=== PATIENT | male | born 1965 | race Caucasian/White ===

== ENCOUNTER 2020-06-15 15:01 | Inpatient (IN) ==
[2020-06-15] MEDS ORDERED: NS 0.9% 1000 ml BAG 1,000 ML IV ONE ×2 (15:45→18:09)
[2020-06-15 15:58] LABS: ABS Lymphocytes 0.8 10^3/ul (1.0-4.8); ABS Monocytes 0.7 10^3/ul (0-0.8); ABS Neutrophils 3.7 10^3/ul (1.5-7.7); Hematocrit 38 % (42-52); Lymphocyte % 15.4 %; Mean Corpuscular HGB Conc 35 g/dL (31-36); Mean Corpuscular Hemoglobin 33 pg (27-31); Mean Corpuscular Volume 94 fL (80-94); Mean Platelet Volume 8.3 fL (7.4-10.4); Platelet Count 120 10^3/uL (150-450); Red Blood Count 3.98 10^6 /uL (4.18-5.48); Red Cell Distribution Width 14 % (10-15); White Blood Count 5.3 10^3/uL (3.5-10.8)
[2020-06-15 16:07] LABS: Activated Partial Thrombo Time 26.6 seconds (26.0-38.0); INR 1.23 (0.82-1.09)
[2020-06-15 16:14] LABS: Albumin 3.7 g/dL (3.2-5.2); Albumin/Globulin Ratio 1.2 (1-3); C Reactive Protein 90.43 mg/L (<8.01); EGFR African American 104.3 (>60); EGFR Non-African American 86.2 (>60); Globulin 3.1 g/dL (2-4); Potassium 3.9 mmol/L (3.5-5.0); Total Bilirubin 0.3 mg/dL (0.2-1.0); Total Protein 6.8 g/dL (6.4-8.9); Troponin I 0.02 ng/mL (<0.03)
[2020-06-15 16:26] LABS: Influenza A Molecular Negative (Negative); Influenza B Molecular Negative (Negative)
[2020-06-15] MEDS ORDERED: Albuterol HFA INHALER 8 gm MDI INH PRN (19:20)
[2020-06-15] MEDS ORDERED: Remdesivir 5 MG/ML LIQ IV Vial 200 MG in NS 0.9% 250 ml 210 ML IV ONE (19:30)
[2020-06-15] MEDS: NS 0.9% 1000 ml BAG 1,000 ML IV SCH (22:12)
[2020-06-15] MEDS: Enoxaparin 40 MG/0.4 ML SYR SUBCUT SCH (22:18)
[2020-06-16 06:54] LABS: INR 1.17 (0.82-1.09)
[2020-06-16 06:56] LABS: ABS Monocytes 0.5 10^3/ul (0-0.8); ABS Neutrophils 2.4 10^3/ul (1.5-7.7); Hematocrit 34 % (42-52); Hemoglobin 11.8 g/dL (14.0-18.0); Lymphocyte % 25.8 %; Mean Corpuscular HGB Conc 34 g/dL (31-36); Mean Corpuscular Hemoglobin 33 pg (27-31); Mean Corpuscular Volume 95 fL (80-94); Mean Platelet Volume 8.2 fL (7.4-10.4); Platelet Count 88 10^3/uL (150-450); Red Cell Distribution Width 14 % (10-15); White Blood Count 3.9 10^3/uL (3.5-10.8)
[2020-06-16 07:00] LABS: Albumin 2.9 g/dL (3.2-5.2); Albumin/Globulin Ratio 1.1 (1-3); BUN/Creatinine Ratio 22.5 (8-20); Calcium 7.9 mg/dL (8.6-10.3); EGFR African American 138.9 (>60); EGFR Non-African American 114.8 (>60); Globulin 2.6 g/dL (2-4); Potassium 3.8 mmol/L (3.5-5.0); Total Bilirubin 0.3 mg/dL (0.2-1.0); Total Protein 5.5 g/dL (6.4-8.9)
[2020-06-16] MEDS: SPIRIVA Respimat (tiotropium) 2.5 mcg/inh Inhaler INH SCH (07:29)
[2020-06-16] MEDS: NS 0.9% 1000 ml BAG 1,000 ML IV SCH (08:29)
[2020-06-16] MEDS: Enoxaparin 40 MG/0.4 ML SYR SUBCUT SCH ×2 (08:38→22:32)
[2020-06-16] MEDS: Albuterol HFA INHALER 8 gm MDI INH PRN (09:39)
[2020-06-16] MEDS: Remdesivir 5 MG/ML LIQ IV Vial 100 MG in NS 0.9% 250 ml 230 ML IV SCH (22:33)
[2020-06-17] MEDS: Nystatin TOP POWDER 15 GM BTL TOPICAL SCH ×2 (01:13→07:47)
[2020-06-17] MEDS: NS 0.9% 1000 ml BAG 1,000 ML IV SCH (04:22)
[2020-06-17] MEDS: Enoxaparin 40 MG/0.4 ML SYR SUBCUT SCH ×2 (07:48→21:13)
[2020-06-17] MEDS: SPIRIVA Respimat (tiotropium) 2.5 mcg/inh Inhaler INH SCH (08:38)
[2020-06-17 19:08] LABS: Urine Appearance Clear; Urine Bilirubin Negative (Negative); Urine Blood Negative (Negative); Urine Color Straw; Urine Glucose Negative (Negative); Urine Ketones Negative (Negative); Urine Nitrite Negative (Negative); Urine Protein Negative (Negative); Urine Specific Gravity 1.009 (1.010-1.030); Urine Urobilinogen Negative (Negative)
[2020-06-17] MEDS: Remdesivir 5 MG/ML LIQ IV Vial 100 MG in NS 0.9% 250 ml 230 ML IV SCH (21:59)
[2020-06-18] MEDS: Nystatin TOP POWDER 15 GM BTL TOPICAL SCH ×3 (00:35→21:51)
[2020-06-18] MEDS: NS 0.9% 1000 ml BAG 1,000 ML IV SCH (04:25)
[2020-06-18 06:39] LABS: ABS Lymphocytes 1.2 10^3/ul (1.0-4.8); ABS Monocytes 0.6 10^3/ul (0-0.8); ABS Neutrophils 3.7 10^3/ul (1.5-7.7); Hematocrit 36 % (42-52); Hemoglobin 12.3 g/dL (14.0-18.0); Lymphocyte % 21.8 %; Mean Corpuscular HGB Conc 34 g/dL (31-36); Mean Corpuscular Hemoglobin 32 pg (27-31); Mean Corpuscular Volume 95 fL (80-94); Mean Platelet Volume 8.7 fL (7.4-10.4); Nucleated Red Blood Cells % 0.1; Platelet Count 116 10^3/uL (150-450); Red Blood Count 3.82 10^6 /uL (4.18-5.48); Red Cell Distribution Width 13 % (10-15); White Blood Count 5.5 10^3/uL (3.5-10.8)
[2020-06-18 07:02] LABS: Albumin 3.1 g/dL (3.2-5.2); Albumin/Globulin Ratio 1.1 (1-3); BUN/Creatinine Ratio 17.2 (8-20); Calcium 8.3 mg/dL (8.6-10.3); EGFR African American 156.5 (>60); EGFR Non-African American 129.4 (>60); Globulin 2.7 g/dL (2-4); Potassium 3.9 mmol/L (3.5-5.0); Total Bilirubin 0.3 mg/dL (0.2-1.0); Total Protein 5.8 g/dL (6.4-8.9)
[2020-06-18] MEDS: SPIRIVA Respimat (tiotropium) 2.5 mcg/inh Inhaler INH SCH (08:04)
[2020-06-18] MEDS: Albuterol HFA INHALER 8 gm MDI INH PRN (08:05)
[2020-06-18] MEDS: Enoxaparin 40 MG/0.4 ML SYR SUBCUT SCH ×2 (09:02→21:40)
[2020-06-18] MEDS: Remdesivir 5 MG/ML LIQ IV Vial 100 MG in NS 0.9% 250 ml 230 ML IV SCH (20:07)
[2020-06-19 06:47] LABS: ABS Lymphocytes 1.1 10^3/ul (1.0-4.8); ABS Monocytes 0.8 10^3/ul (0-0.8); ABS Neutrophils 2.6 10^3/ul (1.5-7.7); Eosinophil % 0.1 %; Hematocrit 38 % (42-52); Lymphocyte % 24.6 %; Mean Corpuscular HGB Conc 34 g/dL (31-36); Mean Corpuscular Hemoglobin 32 pg (27-31); Mean Corpuscular Volume 95 fL (80-94); Mean Platelet Volume 8.4 fL (7.4-10.4); Nucleated Red Blood Cells % 0.1; Platelet Count 144 10^3/uL (150-450); Red Blood Count 4.04 10^6 /uL (4.18-5.48); Red Cell Distribution Width 13 % (10-15); White Blood Count 4.5 10^3/uL (3.5-10.8)
[2020-06-19] MEDS: Enoxaparin 40 MG/0.4 ML SYR SUBCUT SCH (07:21)
[2020-06-19] MEDS: Nystatin TOP POWDER 15 GM BTL TOPICAL SCH (07:21)
[2020-06-19] MEDS: SPIRIVA Respimat (tiotropium) 2.5 mcg/inh Inhaler INH SCH (09:53)
[2020-06-19] MEDS: Remdesivir 5 MG/ML LIQ IV Vial 100 MG in NS 0.9% 250 ml 230 ML IV SCH (22:55)
[2020-06-20] MEDS: Nystatin TOP POWDER 15 GM BTL TOPICAL SCH ×3 (00:25→23:30)
[2020-06-20] MEDS: Enoxaparin 40 MG/0.4 ML SYR SUBCUT SCH ×3 (00:25→23:31)
[2020-06-20 06:59] LABS: ABS Lymphocytes 1.6 10^3/ul (1.0-4.8); ABS Monocytes 0.7 10^3/ul (0-0.8); Hematocrit 36 % (42-52); Hemoglobin 12.4 g/dL (14.0-18.0); Lymphocyte % 25.4 %; Mean Corpuscular HGB Conc 35 g/dL (31-36); Mean Corpuscular Hemoglobin 33 pg (27-31); Mean Corpuscular Volume 94 fL (80-94); Mean Platelet Volume 8.1 fL (7.4-10.4); Platelet Count 170 10^3/uL (150-450); Red Cell Distribution Width 13 % (10-15); White Blood Count 6.2 10^3/uL (3.5-10.8)
[2020-06-20 07:16] LABS: Calcium 8.8 mg/dL (8.6-10.3); EGFR African American 159.4 (>60); EGFR Non-African American 131.7 (>60); Globulin 2.9 g/dL (2-4); Potassium 4.7 mmol/L (3.5-5.0); Total Bilirubin 0.3 mg/dL (0.2-1.0); Total Protein 5.9 g/dL (6.4-8.9)
[2020-06-20] MEDS: SPIRIVA Respimat (tiotropium) 2.5 mcg/inh Inhaler INH SCH (09:50)
[2020-06-21] MEDS: Enoxaparin 40 MG/0.4 ML SYR SUBCUT SCH ×2 (07:53→22:18)
[2020-06-21] MEDS: Nystatin TOP POWDER 15 GM BTL TOPICAL SCH ×2 (07:54→22:20)
[2020-06-21] MEDS: SPIRIVA Respimat (tiotropium) 2.5 mcg/inh Inhaler INH SCH (09:25)
[2020-06-22] MEDS: SPIRIVA Respimat (tiotropium) 2.5 mcg/inh Inhaler INH SCH (07:43)
[2020-06-22] MEDS: Enoxaparin 40 MG/0.4 ML SYR SUBCUT SCH ×2 (10:45→19:58)
[2020-06-22] MEDS: Nystatin TOP POWDER 15 GM BTL TOPICAL SCH ×2 (10:48→19:59)
[2020-06-23] MEDS: SPIRIVA Respimat (tiotropium) 2.5 mcg/inh Inhaler INH SCH (07:37)
[2020-06-23] MEDS: Enoxaparin 40 MG/0.4 ML SYR SUBCUT SCH ×2 (09:12→20:10)
[2020-06-23] MEDS: Nystatin TOP POWDER 15 GM BTL TOPICAL SCH ×2 (10:49→20:10)
[2020-06-24 07:35] LABS: Hematocrit 39 % (42-52); Mean Corpuscular HGB Conc 34 g/dL (31-36); Mean Corpuscular Hemoglobin 32 pg (27-31); Mean Corpuscular Volume 96 fL (80-94); Mean Platelet Volume 7.3 fL (7.4-10.4); Platelet Count 279 10^3/uL (150-450); Red Blood Count 4.04 10^6 /uL (4.18-5.48); Red Cell Distribution Width 13 % (10-15); White Blood Count 9.4 10^3/uL (3.5-10.8)
[2020-06-24] MEDS: Nystatin TOP POWDER 15 GM BTL TOPICAL SCH ×2 (07:42→20:59)
[2020-06-24] MEDS: Enoxaparin 40 MG/0.4 ML SYR SUBCUT SCH ×2 (07:43→20:45)
[2020-06-24 07:51] LABS: BUN/Creatinine Ratio 31.7 (8-20); Calcium 9.3 mg/dL (8.6-10.3); EGFR African American 159.4 (>60); EGFR Non-African American 131.7 (>60); Magnesium 2.2 mg/dL (1.9-2.7); Potassium 4.4 mmol/L (3.5-5.0)
[2020-06-24] MEDS: SPIRIVA Respimat (tiotropium) 2.5 mcg/inh Inhaler INH SCH (07:53)
[2020-06-24 08:43] LABS: ABS Lymphocytes 1.8 10^3/ul (1.0-4.8); ABS Monocytes 0.8 10^3/ul (0-0.8); ABS Neutrophils 6.8 10^3/ul (1.5-7.7); Lymphocyte % 18.8 %; Nucleated Red Blood Cells % 0.1
[2020-06-25] MEDS: SPIRIVA Respimat (tiotropium) 2.5 mcg/inh Inhaler INH SCH (07:53)
[2020-06-25] MEDS: Enoxaparin 40 MG/0.4 ML SYR SUBCUT SCH ×2 (09:20→20:36)
[2020-06-25] MEDS: Nystatin TOP POWDER 15 GM BTL TOPICAL SCH ×2 (09:24→21:21)
[2020-06-25] MEDS ORDERED: Lorazepam PYXIS KEY PRN (13:22)
[2020-06-25] MEDS: LORazepam 2 mg VIAL 1 ml IV PUSH PRN (14:13)
[2020-06-25] MEDS: OLANzapine 5 mg TAB*ODT PO SCH (14:18)
[2020-06-26] MEDS: LORazepam 2 mg VIAL 1 ml IV PUSH PRN ×3 (06:51→16:41)
[2020-06-26] MEDS: SPIRIVA Respimat (tiotropium) 2.5 mcg/inh Inhaler INH SCH (07:31)
[2020-06-26] MEDS: OLANzapine 5 mg TAB*ODT PO SCH (07:42)
[2020-06-26] MEDS: Enoxaparin 40 MG/0.4 ML SYR SUBCUT SCH ×2 (07:44→21:32)
[2020-06-26] MEDS: Nystatin TOP POWDER 15 GM BTL TOPICAL SCH ×2 (07:45→21:51)
[2020-06-26 09:10] LABS: ABS Monocytes 0.7 10^3/ul (0-0.8); ABS Neutrophils 9.5 10^3/ul (1.5-7.7); Hematocrit 41 % (42-52); Hemoglobin 14.1 g/dL (14.0-18.0); Lymphocyte % 16.1 %; Mean Corpuscular HGB Conc 34 g/dL (31-36); Mean Corpuscular Hemoglobin 32 pg (27-31); Mean Corpuscular Volume 95 fL (80-94); Mean Platelet Volume 6.9 fL (7.4-10.4); Nucleated Red Blood Cells % 0.1; Platelet Count 409 10^3/uL (150-450); Red Blood Count 4.35 10^6 /uL (4.18-5.48); Red Cell Distribution Width 13 % (10-15); White Blood Count 12.2 10^3/uL (3.5-10.8)
[2020-06-26 09:27] LABS: BUN/Creatinine Ratio 35.7 (8-20); EGFR African American 114.4 (>60); EGFR Non-African American 94.5 (>60)
[2020-06-27 07:55] LABS: ABS Lymphocytes 2.7 10^3/ul (1.0-4.8); ABS Monocytes 1.2 10^3/ul (0-0.8); ABS Neutrophils 7.9 10^3/ul (1.5-7.7); Eosinophil % 0.2 %; Hematocrit 40 % (42-52); Hemoglobin 13.4 g/dL (14.0-18.0); Lymphocyte % 22.6 %; Mean Corpuscular HGB Conc 34 g/dL (31-36); Mean Corpuscular Hemoglobin 32 pg (27-31); Mean Corpuscular Volume 95 fL (80-94); Mean Platelet Volume 7.1 fL (7.4-10.4); Platelet Count 352 10^3/uL (150-450); Red Blood Count 4.17 10^6 /uL (4.18-5.48); Red Cell Distribution Width 14 % (10-15); White Blood Count 11.8 10^3/uL (3.5-10.8)
[2020-06-27] MEDS: Nystatin TOP POWDER 15 GM BTL TOPICAL SCH ×2 (08:09→20:34)
[2020-06-27] MEDS: Enoxaparin 40 MG/0.4 ML SYR SUBCUT SCH ×2 (08:09→20:19)
[2020-06-27] MEDS: OLANzapine 5 mg TAB*ODT PO SCH (08:09)
[2020-06-27 08:10] LABS: BUN/Creatinine Ratio 41.5 (8-20); Calcium 8.8 mg/dL (8.6-10.3); EGFR African American 117.6 (>60); EGFR Non-African American 97.2 (>60); Magnesium 2.3 mg/dL (1.9-2.7); Potassium 4.2 mmol/L (3.5-5.0)
[2020-06-27] MEDS: SPIRIVA Respimat (tiotropium) 2.5 mcg/inh Inhaler INH SCH (09:02)
[2020-06-27] MEDS: LORazepam 2 mg VIAL 1 ml IV PUSH PRN ×2 (10:44→20:20)
[2020-06-28 07:05] LABS: ABS Lymphocytes 2.6 10^3/ul (1.0-4.8); ABS Monocytes 0.9 10^3/ul (0-0.8); ABS Neutrophils 6.5 10^3/ul (1.5-7.7); Eosinophil % 0.3 %; Hematocrit 38 % (42-52); Hemoglobin 12.7 g/dL (14.0-18.0); Lymphocyte % 25.9 %; Mean Corpuscular HGB Conc 34 g/dL (31-36); Mean Corpuscular Hemoglobin 32 pg (27-31); Mean Corpuscular Volume 96 fL (80-94); Nucleated Red Blood Cells % 0.1; Platelet Count 258 10^3/uL (150-450); Red Blood Count 3.92 10^6 /uL (4.18-5.48); Red Cell Distribution Width 14 % (10-15)
[2020-06-28 07:28] LABS: Calcium 8.3 mg/dL (8.6-10.3); Magnesium 2.3 mg/dL (1.9-2.7); Potassium 4.2 mmol/L (3.5-5.0)
[2020-06-28 07:34] LABS: EGFR African American 130.4 (>60); EGFR Non-African American 107.7 (>60)
[2020-06-28] MEDS: SPIRIVA Respimat (tiotropium) 2.5 mcg/inh Inhaler INH SCH (07:37)
[2020-06-28] MEDS: OLANzapine 5 mg TAB*ODT PO SCH (08:08)
[2020-06-28] MEDS: Enoxaparin 40 MG/0.4 ML SYR SUBCUT SCH (08:08)
[2020-06-28] MEDS: Nystatin TOP POWDER 15 GM BTL TOPICAL SCH (08:09)
[2020-06-28] MEDS: LORazepam 2 mg VIAL 1 ml IV PUSH PRN ×2 (08:09→13:19)
[2020-06-28 13:26] VITALS: BP 112/70
== END 2020-06-28 15:24 | disposition swing bed (61) | DRG 177 ==
LOC: ED 15:01 → MED 18:37 → MERGE 18:37 → MED 21:39 → MEDTELE 06-26 17:27
PROVIDERS: ADMIT Internal Medicine; ATTEND Student in an Organized Health Care Education/Training Program

== ENCOUNTER 2020-06-28 15:25 | Inpatient (IN) ==
[2020-06-28] MEDS ORDERED: Lorazepam PYXIS KEY PRN (15:57)
[2020-06-28] MEDS ORDERED: Albuterol HFA INHALER 8 gm MDI INH PRN (16:06)
[2020-06-28] MEDS: Enoxaparin 40 MG/0.4 ML SYR SUBCUT SCH (20:41)
[2020-06-28] MEDS: LORazepam 2 mg VIAL 1 ml IV PUSH PRN (20:41)
[2020-06-28] MEDS: Nystatin TOP POWDER 15 GM BTL TOPICAL SCH (20:46)
[2020-06-29] MEDS: LORazepam 2 mg VIAL 1 ml IV PUSH PRN ×2 (04:34→21:33)
[2020-06-29] MEDS: SPIRIVA Respimat (tiotropium) 2.5 mcg/inh Inhaler INH SCH (09:16)
[2020-06-29] MEDS: OLANzapine 5 mg TAB*ODT PO SCH (09:49)
[2020-06-29] MEDS: Enoxaparin 40 MG/0.4 ML SYR SUBCUT SCH ×2 (09:49→21:30)
[2020-06-29] MEDS: Nystatin TOP POWDER 15 GM BTL TOPICAL SCH ×2 (09:53→21:45)
[2020-06-30] MEDS: SPIRIVA Respimat (tiotropium) 2.5 mcg/inh Inhaler INH SCH (07:52)
[2020-06-30] MEDS: OLANzapine 5 mg TAB*ODT PO SCH (08:10)
[2020-06-30] MEDS: Enoxaparin 40 MG/0.4 ML SYR SUBCUT SCH ×2 (08:13→20:52)
[2020-06-30] MEDS: Nystatin TOP POWDER 15 GM BTL TOPICAL SCH ×2 (10:08→20:55)
[2020-06-30] MEDS: LORazepam 2 mg VIAL 1 ml IV PUSH PRN (20:52)
[2020-07-01] MEDS: SPIRIVA Respimat (tiotropium) 2.5 mcg/inh Inhaler INH SCH (07:52)
[2020-07-01] MEDS: OLANzapine 5 mg TAB*ODT PO SCH (08:16)
[2020-07-01] MEDS: Enoxaparin 40 MG/0.4 ML SYR SUBCUT SCH (08:21)
[2020-07-01] MEDS: Nystatin TOP POWDER 15 GM BTL TOPICAL SCH ×2 (08:22→21:19)
[2020-07-02] MEDS: SPIRIVA Respimat (tiotropium) 2.5 mcg/inh Inhaler INH SCH (08:15)
[2020-07-02] MEDS: Enoxaparin 40 MG/0.4 ML SYR SUBCUT SCH (08:46)
[2020-07-02] MEDS: OLANzapine 5 mg TAB*ODT PO SCH (08:46)
[2020-07-02] MEDS: Nystatin TOP POWDER 15 GM BTL TOPICAL SCH ×2 (08:46→20:43)
[2020-07-03] MEDS: SPIRIVA Respimat (tiotropium) 2.5 mcg/inh Inhaler INH SCH (08:11)
[2020-07-03] MEDS: Enoxaparin 40 MG/0.4 ML SYR SUBCUT SCH (08:49)
[2020-07-03] MEDS: Nystatin TOP POWDER 15 GM BTL TOPICAL SCH (08:49)
[2020-07-03] MEDS: OLANzapine 5 mg TAB*ODT PO SCH (08:50)
[2020-07-03 13:40] VITALS: BP 149/79
== END 2020-07-03 13:40 | DRG 177 ==
LOC: MEDTELE 15:25
PROVIDERS: ADMIT Internal Medicine; ATTEND Internal Medicine

== ENCOUNTER 2021-04-03 09:17 | Inpatient (IN) ==
[~2021-04-03 09:17] MED LIST: Rocuronium 50 mg VIAL 10 mg/ml 5 ml VIAL (50 mg) ONE
[2021-04-03 09:31] LABS: Hematocrit 39 % (42-52); Mean Corpuscular HGB Conc 33 g/dL (31-36); Mean Corpuscular Hemoglobin 32 pg (27-31); Mean Corpuscular Volume 96 fL (80-94); Mean Platelet Volume 8.2 fL (7.4-10.4); Platelet Count 162 10^3/uL (150-450); Red Blood Count 4.08 10^6 /uL (4.18-5.48); Red Cell Distribution Width 14 % (10-15); White Blood Count 10.9 10^3/uL (3.5-10.8)
[2021-04-03] MEDS ORDERED: Propofol 10 mg/ml 100 ML BTL 100 ML ONE (09:37)
[2021-04-03 09:40] LABS: Activated Partial Thrombo Time 30.7 seconds (26.0-38.0); INR 1.12 (0.86-1.15)
[2021-04-03] MEDS ORDERED: Etomidate 40 mg/20 ml (2 MG/ML) 20 ml VIAL (40 mg) ONE (09:44)
[2021-04-03] MEDS ORDERED: Succinylcholine 200 mg VIAL 20 mg/ml 10 ml VIAL (200 mg) ONE (09:44)
[2021-04-03 09:49] LABS: Urine Appearance Cloudy; Urine Bilirubin Negative (Negative); Urine Blood 2+ (Negative); Urine Color Yellow; Urine Glucose 3+(>=500 mg/dL) (Negative); Urine Ketones Trace (Negative); Urine Nitrite Negative (Negative); Urine Protein 3+(>=500 mg/dL) (Negative); Urine Specific Gravity 1.009 (1.002-1.030); Urine Urobilinogen Negative (Negative)
[2021-04-03 09:50] LABS: ALT 32 U/L (7-52); Albumin 3.1 g/dL (3.2-5.2); Albumin/Globulin Ratio 1.1 (1-3); Alkaline Phosphatase 49 U/L (35-149); Blood Urea Nitrogen 16 mg/dL (6-24); C Reactive Protein 6.64 mg/L (<8.01); CO2 Carbon Dioxide 17 mmol/L (22-32); Calcium 7.6 mg/dL (8.6-10.3); Chloride 106 mmol/L (101-111); Globulin 2.8 g/dL (2-4); Glucose 227 mg/dL (70-100); Sodium 138 mmol/L (135-145); Total Protein 5.9 g/dL (6.4-8.9)
[2021-04-03 09:51] LABS: Troponin I 0.01 ng/mL (<0.03)
[2021-04-03 09:52] LABS: Urine Bacteria Absent (Absent); Urine Red Blood Cell 3+(>10/hpf) (Absent); Urine Sperm Present (Absent); Urine Squamous Epithelial Cell Present (Absent); Urine White Blood Cell 3+(>20/hpf) (Absent)
[2021-04-03 10:18] LABS: PCO2 Arterial 47 mmHg (35-45); PO2 Arterial 88 mmHg (80-100)
[2021-04-03 10:18] LABS: ABS Eosinophils 0.1 10^3/ul (0-0.6); ABS Lymphocytes 3.5 10^3/ul (1.0-4.8); ABS Monocytes 0.9 10^3/ul (0-0.8); ABS Neutrophils 6.4 10^3/ul (1.5-7.7); Eosinophil % 0.8 %; Nucleated Red Blood Cells % 0.1
[2021-04-03 10:20] LABS: RBC Morphology Normal (Normal)
[2021-04-03] MEDS ORDERED: NS 0.9% 500 ml BAG 500 ML IV ONE (10:24)
[2021-04-03] MEDS ORDERED: Propofol 10 mg/ml 100 ML BTL 100 ML IV ONE (10:26)
[2021-04-03] MEDS ORDERED: Norepinephrine 16MCG/ML IVPRE 4,000 MCG/250 ML BAG IV ONE (10:39)
[2021-04-03] MEDS ORDERED: Piperacillin/Tazobac ADVAN 3.375 GM in NS 0.9% 100 ml BAG 100 ML IV ONE (10:47)
[2021-04-03] MEDS ORDERED: NS 0.9% IV ONE (11:00)
[2021-04-03] MEDS ORDERED: Norepinephrine 16MCG/ML IVPRE 4,000 MCG/250 ML BAG IV SCH (11:00)
[2021-04-03 11:23] LABS: Anion Gap 15 mmol/L (2-11)
[2021-04-03] MEDS ORDERED: LORazepam 2 mg VIAL 1 ml IV PUSH ONE (12:14)
[2021-04-03] MEDS ORDERED: Lorazepam PYXIS KEY PRN ×2 (12:14→17:27)
[2021-04-03] MEDS ORDERED: Iohexol 350 (CONTRAST) 500 ML MDV IV ONE (12:27)
[2021-04-03 13:33] LABS: Rapid COVID-19 Molecular Undetected (Undetected)
[2021-04-03] MEDS ORDERED: Atropine 0.1 MG/ML 10 ml SYR (1 mg) ONE (13:54)
[2021-04-03 14:23] LABS: Urine Appearance Cloudy; Urine Bilirubin Negative (Negative); Urine Blood 2+ (Negative); Urine Color Yellow; Urine Glucose Negative (Negative); Urine Ketones Negative (Negative); Urine Nitrite Negative (Negative); Urine Protein Negative (Negative); Urine Urobilinogen Negative (Negative)
[2021-04-03 14:26] LABS: Urine Bacteria Absent (Absent); Urine Red Blood Cell 3+(>10/hpf) (Absent); Urine Renal Epithelial Cells Present (Absent); Urine Squamous Epithelial Cell Present (Absent); Urine White Blood Cell Trace(0-5/hpf) (Absent)
[2021-04-03 14:53] LABS: AST Redraw 41 U/L (13-39); Magnesium 1.8 mg/dL (1.9-2.7); Phosphorus 2.7 mg/dL (2.5-5.0); Potassium Redraw 3.8 mmol/L (3.5-5.0)
[2021-04-03] MEDS: Chlorhexidine MOUTHWASH 0.12% 15 ML UDC TOPICAL SCH ×3 (15:01→22:03)
[2021-04-03] MEDS ORDERED: Magnesium Sulfate IV 3 GM in NS 0.9% 100 ml BAG 100 ML IVPB ONE (15:02)
[2021-04-03] MEDS ORDERED: Lactated Ringers 1000 ml BAG 1,000 ML IV ONE (15:04)
[2021-04-03 15:06] LABS: Creatine Kinase 709 U/L (10-223)
[2021-04-03] MEDS: Pantoprazole VIAL 40 MG VIAL IV SCH (15:37)
[2021-04-03] MEDS: KCL 20 MEQ/100 ML IVPREMIX 20 MEQ/100 ML BAG IV SCH ×2 (15:37→19:37)
[2021-04-03] MEDS: Heparin 5000 UNITS/ML 1 mL VIAL SUBCUT SCH ×2 (15:37→22:04)
[2021-04-03] MEDS ORDERED: Dextrose 50% Syringe 50 ml 25 GM/50 ML SYRINGE IV PUSH PRN (15:56)
[2021-04-03] MEDS ORDERED: fentaNYL 100 mcg/2 ml 50 MCG/ML VIAL IV SLOW PU PRN (16:01)
[2021-04-03] MEDS: fentaNYL 100 mcg/2 ml 50 MCG/ML VIAL IV SLOW PU PRN ×3 (16:10→22:17)
[2021-04-03] MEDS ORDERED: Meperidine 50 mg/ml SYRINGE 1 ml ONE (16:15)
[2021-04-03 16:27] LABS: Albumin/Globulin Ratio 1.2 (1-3); Calcium 7.3 mg/dL (8.6-10.3); Globulin 2.5 g/dL (2-4); Potassium 3.9 mmol/L (3.5-5.0); Total Bilirubin 0.5 mg/dL (0.2-1.0); Total Protein 5.5 g/dL (6.4-8.9)
[2021-04-03 17:16] LABS: Urine Specific Gravity > 1.060 (1.002-1.030)
[2021-04-03] MEDS ORDERED: Atropine 1 MG/ML INJ 1 ML VIAL IV PUSH ONE (17:20)
[2021-04-03] MEDS ORDERED: Meperidine 50 mg/ml SYRINGE 1 ml IV ONE (17:20)
[2021-04-03 17:56] LABS: PCO2 Arterial 42 mmHg (35-45); PO2 Arterial 167 mmHg (80-100)
[2021-04-03] MEDS ORDERED: Atropine 0.1 MG/ML 10 ml SYR (1 mg) IV PUSH ONE (18:00)
[2021-04-03] MEDS: LORazepam 2 mg VIAL 1 ml IV PUSH PRN ×3 (18:03→22:12)
[2021-04-03] MEDS: Propofol 10 mg/ml 100 ML BTL 100 ML IV SCH (18:55)
[2021-04-03 19:47] LABS: ABS Lymphocytes 0.9 10^3/ul (1.0-4.8); ABS Monocytes 0.8 10^3/ul (0-0.8); ABS Neutrophils 7.6 10^3/ul (1.5-7.7); Eosinophil % 0.1 %; Hematocrit 36 % (42-52); Hemoglobin 12.5 g/dL (14.0-18.0); Lymphocyte % 9.2 %; Mean Corpuscular HGB Conc 34 g/dL (31-36); Mean Corpuscular Hemoglobin 33 pg (27-31); Mean Corpuscular Volume 95 fL (80-94); Mean Platelet Volume 8.1 fL (7.4-10.4); Platelet Count 124 10^3/uL (150-450); Red Blood Count 3.83 10^6 /uL (4.18-5.48); Red Cell Distribution Width 14 % (10-15); White Blood Count 9.3 10^3/uL (3.5-10.8)
[2021-04-03 20:12] LABS: Calcium 7.5 mg/dL (8.6-10.3); Magnesium 2.7 mg/dL (1.9-2.7); Potassium 4.3 mmol/L (3.5-5.0)
[2021-04-03] MEDS: Valproic Acid IV 500 MG in NS 0.9% 100 ML IVPB SCH (22:03)
[2021-04-03] MEDS: OLANzapine 5 mg TAB*ODT PO SCH (22:03)
[2021-04-03] MEDS: Saline FLUSH-CENTRAL 10 ML SYRINGE CENT\\PICC SCH (23:46)
[2021-04-04 00:14] LABS: ABS Monocytes 1.1 10^3/ul (0-0.8); ABS Neutrophils 10.2 10^3/ul (1.5-7.7); Eosinophil % 0.1 %; Hematocrit 40 % (42-52); Hemoglobin 13.3 g/dL (14.0-18.0); Lymphocyte % 7.8 %; Mean Corpuscular HGB Conc 33 g/dL (31-36); Mean Corpuscular Hemoglobin 32 pg (27-31); Mean Corpuscular Volume 95 fL (80-94); Mean Platelet Volume 8.4 fL (7.4-10.4); Platelet Count 138 10^3/uL (150-450); Red Blood Count 4.21 10^6 /uL (4.18-5.48); Red Cell Distribution Width 14 % (10-15); White Blood Count 12.3 10^3/uL (3.5-10.8)
[2021-04-04 00:26] LABS: Calcium 7.5 mg/dL (8.6-10.3); Magnesium 2.5 mg/dL (1.9-2.7); Potassium 4.3 mmol/L (3.5-5.0)
[2021-04-04] MEDS: Chlorhexidine MOUTHWASH 0.12% 15 ML UDC TOPICAL SCH ×6 (01:56→21:02)
[2021-04-04] MEDS: Propofol 10 mg/ml 100 ML BTL 100 ML IV SCH ×5 (02:44→21:27)
[2021-04-04] MEDS: fentaNYL 100 mcg/2 ml 50 MCG/ML VIAL IV SLOW PU PRN ×6 (03:35→20:12)
[2021-04-04] MEDS: Valproic Acid IV 500 MG in NS 0.9% 100 ML IVPB SCH ×4 (04:52→21:26)
[2021-04-04 05:20] LABS: ABS Lymphocytes 0.9 10^3/ul (1.0-4.8); ABS Monocytes 0.7 10^3/ul (0-0.8); ABS Neutrophils 7.4 10^3/ul (1.5-7.7); Hematocrit 35 % (42-52); Hemoglobin 12.2 g/dL (14.0-18.0); Lymphocyte % 10.4 %; Mean Corpuscular HGB Conc 34 g/dL (31-36); Mean Corpuscular Hemoglobin 32 pg (27-31); Mean Corpuscular Volume 94 fL (80-94); Mean Platelet Volume 8.4 fL (7.4-10.4); Platelet Count 121 10^3/uL (150-450); Red Blood Count 3.76 10^6 /uL (4.18-5.48); Red Cell Distribution Width 14 % (10-15)
[2021-04-04 05:46] LABS: Anion Gap 3 mmol/L (2-11); Blood Urea Nitrogen 12 mg/dL (6-24); CO2 Carbon Dioxide 27 mmol/L (22-32); Calcium 7.6 mg/dL (8.6-10.3); Chloride 110 mmol/L (101-111); Glucose 100 mg/dL (70-100); Magnesium 2.2 mg/dL (1.9-2.7); Potassium 4.1 mmol/L (3.5-5.0); Sodium 140 mmol/L (135-145)
[2021-04-04] MEDS: Heparin 5000 UNITS/ML 1 mL VIAL SUBCUT SCH ×3 (06:17→21:23)
[2021-04-04] MEDS: Pantoprazole VIAL 40 MG VIAL IV SCH (08:07)
[2021-04-04] MEDS: Artificial Tear OPHTH.OINT 3.5 GM BOTH EYES PRN (08:11)
[2021-04-04 08:31] LABS: Phosphorus 2.7 mg/dL (2.5-5.0)
[2021-04-04] MEDS ORDERED: Lactated Ringers 1000 ml BAG 1,000 ML IV SCH (11:00)
[2021-04-04] MEDS: Saline FLUSH-CENTRAL 10 ML SYRINGE CENT\\PICC SCH (11:00)
[2021-04-04 13:13] LABS: Urine Benzodiazepine Screen None Detected (None Detect); Urine Cannabinoids Screen None Detected (None Detect); Urine Opiates Screen None Detected (None Detect)
[2021-04-04 13:32] LABS: ABS Monocytes 0.7 10^3/ul (0-0.8); ABS Neutrophils 7.6 10^3/ul (1.5-7.7); Eosinophil % 0.1 %; Hematocrit 37 % (42-52); Hemoglobin 12.5 g/dL (14.0-18.0); Lymphocyte % 11.2 %; Mean Corpuscular HGB Conc 34 g/dL (31-36); Mean Corpuscular Hemoglobin 32 pg (27-31); Mean Corpuscular Volume 93 fL (80-94); Mean Platelet Volume 8.2 fL (7.4-10.4); Platelet Count 131 10^3/uL (150-450); Red Blood Count 3.93 10^6 /uL (4.18-5.48); Red Cell Distribution Width 14 % (10-15); White Blood Count 9.4 10^3/uL (3.5-10.8)
[2021-04-04] MEDS ORDERED: Vancomycin per Pharmacy 1 EA NOTE FOLLOW UP PRN (13:36)
[2021-04-04 13:47] LABS: C Reactive Protein 86.19 mg/L (<8.01); Calcium 7.9 mg/dL (8.6-10.3); Magnesium 2.1 mg/dL (1.9-2.7)
[2021-04-04] MEDS ORDERED: Vancomycin 1,500 MG in NS 0.9% 250 ml 250 ML IVPB ONE (14:00)
[2021-04-04] MEDS ORDERED: Zosyn per Pharmacy NOTE FOLLOW UP SCH (16:00)
[2021-04-04] MEDS: ZOSYN 3.375 GM Q8H per EXTENDED INFUSION IV SCH (16:30)
[2021-04-04] MEDS: Lactated Ringers 1000 ml BAG 1,000 ML IV SCH (19:04)
[2021-04-04] MEDS: OLANzapine 5 mg TAB*ODT PO SCH (21:02)
[2021-04-04] MEDS: Vancomycin 1000 MG in NS 0.9% 250 ML IVPB SCH (21:33)
[2021-04-05] MEDS: Saline FLUSH-CENTRAL 10 ML SYRINGE CENT\\PICC SCH ×3 (00:45→22:00)
[2021-04-05] MEDS: ZOSYN 3.375 GM Q8H per EXTENDED INFUSION IV SCH ×3 (00:46→17:20)
[2021-04-05] MEDS: Chlorhexidine MOUTHWASH 0.12% 15 ML UDC TOPICAL SCH ×6 (02:07→21:46)
[2021-04-05] MEDS: fentaNYL 100 mcg/2 ml 50 MCG/ML VIAL IV SLOW PU PRN ×6 (02:12→23:45)
[2021-04-05] MEDS: Lactated Ringers 1000 ml BAG 1,000 ML IV SCH ×3 (03:25→11:46)
[2021-04-05] MEDS: Propofol 10 mg/ml 100 ML BTL 100 ML IV SCH ×5 (03:26→22:46)
[2021-04-05] MEDS: Valproic Acid IV 500 MG in NS 0.9% 100 ML IVPB SCH ×4 (04:06→21:48)
[2021-04-05] MEDS: LORazepam 2 mg VIAL 1 ml IV PUSH PRN (04:10)
[2021-04-05 04:55] LABS: ABS Monocytes 0.7 10^3/ul (0-0.8); ABS Neutrophils 6.5 10^3/ul (1.5-7.7); Eosinophil % 0.3 %; Hematocrit 34 % (42-52); Hemoglobin 11.8 g/dL (14.0-18.0); Lymphocyte % 12.4 %; Mean Corpuscular HGB Conc 34 g/dL (31-36); Mean Corpuscular Hemoglobin 32 pg (27-31); Mean Corpuscular Volume 94 fL (80-94); Mean Platelet Volume 8.4 fL (7.4-10.4); Platelet Count 120 10^3/uL (150-450); Red Blood Count 3.68 10^6 /uL (4.18-5.48); Red Cell Distribution Width 14 % (10-15); White Blood Count 8.3 10^3/uL (3.5-10.8)
[2021-04-05 05:12] LABS: Albumin 2.5 g/dL (3.2-5.2); Albumin/Globulin Ratio 1.1 (1-3); Calcium 7.7 mg/dL (8.6-10.3); Globulin 2.3 g/dL (2-4); Magnesium 2.1 mg/dL (1.9-2.7); Phosphorus 2.4 mg/dL (2.5-5.0); Potassium 3.9 mmol/L (3.5-5.0); Total Bilirubin 0.3 mg/dL (0.2-1.0); Total Protein 4.8 g/dL (6.4-8.9)
[2021-04-05] MEDS: Heparin 5000 UNITS/ML 1 mL VIAL SUBCUT SCH ×3 (05:50→21:45)
[2021-04-05] MEDS: Vancomycin 1000 MG in NS 0.9% 250 ML IVPB SCH (05:54)
[2021-04-05] MEDS ORDERED: Potassium Phosphate IV 15 MMOLE in NS 0.9% 250 ml 250 ML IVPB ONE (08:00)
[2021-04-05] MEDS: Pantoprazole VIAL 40 MG VIAL IV SCH (08:42)
[2021-04-05] MEDS: OLANzapine 5 mg TAB*ODT PO SCH (21:45)
[2021-04-05 22:36] LABS: Anaplasma phagocytophilum Negative (Negative); B. miyamotoi PCR, B Negative (Negative); Babesia divergens/MO-1 Negative (Negative); Babesia ducani Negative (Negative); Ehrlichia chaffeensis Negative (Negative); Ehrlichia ewingii/canis Negative (Negative); Ehrlichia muris eauclairensis Negative (Negative)
[2021-04-06] MEDS: Chlorhexidine MOUTHWASH 0.12% 15 ML UDC TOPICAL SCH ×7 (00:30→23:58)
[2021-04-06] MEDS: ZOSYN 3.375 GM Q8H per EXTENDED INFUSION IV SCH ×4 (01:06→23:58)
[2021-04-06] MEDS: LORazepam 2 mg VIAL 1 ml IV PUSH PRN (01:34)
[2021-04-06] MEDS: Valproic Acid IV 500 MG in NS 0.9% 100 ML IVPB SCH ×4 (04:24→23:09)
[2021-04-06] MEDS: Propofol 10 mg/ml 100 ML BTL 100 ML IV SCH ×2 (04:28→08:55)
[2021-04-06] MEDS: Heparin 5000 UNITS/ML 1 mL VIAL SUBCUT SCH ×3 (05:24→22:38)
[2021-04-06] MEDS ORDERED: Vancomycin Trough Check NOTE FOLLOW UP ONE (05:30)
[2021-04-06 05:36] LABS: ABS Monocytes 0.7 10^3/ul (0-0.8); ABS Neutrophils 4.2 10^3/ul (1.5-7.7); Eosinophil % 0.3 %; Hematocrit 34 % (42-52); Hemoglobin 11.5 g/dL (14.0-18.0); Lymphocyte % 16.5 %; Mean Corpuscular HGB Conc 34 g/dL (31-36); Mean Corpuscular Hemoglobin 32 pg (27-31); Mean Corpuscular Volume 94 fL (80-94); Mean Platelet Volume 8.8 fL (7.4-10.4); Platelet Count 124 10^3/uL (150-450); Red Blood Count 3.57 10^6 /uL (4.18-5.48); Red Cell Distribution Width 14 % (10-15); White Blood Count 5.8 10^3/uL (3.5-10.8)
[2021-04-06] MEDS: fentaNYL 100 mcg/2 ml 50 MCG/ML VIAL IV SLOW PU PRN ×2 (05:51→07:52)
[2021-04-06 05:52] LABS: Calcium 7.9 mg/dL (8.6-10.3); Magnesium 2.1 mg/dL (1.9-2.7); Phosphorus 2.9 mg/dL (2.5-5.0); Potassium 4.1 mmol/L (3.5-5.0)
[2021-04-06] MEDS: Pantoprazole VIAL 40 MG VIAL IV SCH (07:28)
[2021-04-06] MEDS ORDERED: Acetaminophen IV 1 GM/100ML 100 ML IV ONE (13:09)
[2021-04-06] MEDS: Saline FLUSH-CENTRAL 10 ML SYRINGE CENT\\PICC SCH ×2 (13:18→22:40)
[2021-04-06] MEDS: Acetaminophen IV 1 GM/100ML 100 ML IV SCH ×2 (14:24→22:32)
[2021-04-06] MEDS: Midazolam 50 MG VIAL IV DRIP 50 ML IV SCH ×2 (14:38→20:30)
[2021-04-06] MEDS ORDERED: hydrALAZINE 20 mg/ml 1 ML Vial IV IV SLOW PU PRN (15:43)
[2021-04-07] MEDS: Chlorhexidine MOUTHWASH 0.12% 15 ML UDC TOPICAL SCH ×5 (03:57→19:52)
[2021-04-07] MEDS: Valproic Acid IV 500 MG in NS 0.9% 100 ML IVPB SCH ×2 (03:58→09:25)
[2021-04-07] MEDS: Artificial Tear OPHTH.OINT 3.5 GM BOTH EYES PRN (04:00)
[2021-04-07 04:36] LABS: Hematocrit 34 % (42-52); Hemoglobin 11.6 g/dL (14.0-18.0); Mean Corpuscular HGB Conc 35 g/dL (31-36); Mean Corpuscular Hemoglobin 33 pg (27-31); Mean Corpuscular Volume 94 fL (80-94); Mean Platelet Volume 8.4 fL (7.4-10.4); Platelet Count 125 10^3/uL (150-450); Red Blood Count 3.57 10^6 /uL (4.18-5.48); Red Cell Distribution Width 14 % (10-15); White Blood Count 6.2 10^3/uL (3.5-10.8)
[2021-04-07 04:55] LABS: Albumin 2.4 g/dL (3.2-5.2); Calcium 7.9 mg/dL (8.6-10.3); Globulin 2.3 g/dL (2-4); Phosphorus 2.9 mg/dL (2.5-5.0); Potassium 3.9 mmol/L (3.5-5.0); Total Bilirubin 0.3 mg/dL (0.2-1.0); Total Protein 4.7 g/dL (6.4-8.9)
[2021-04-07] MEDS: Acetaminophen IV 1 GM/100ML 100 ML IV SCH ×3 (05:38→19:52)
[2021-04-07] MEDS: Heparin 5000 UNITS/ML 1 mL VIAL SUBCUT SCH ×2 (05:41→13:47)
[2021-04-07] MEDS: ZOSYN 3.375 GM Q8H per EXTENDED INFUSION IV SCH (08:23)
[2021-04-07] MEDS: Pantoprazole VIAL 40 MG VIAL IV SCH (08:23)
[2021-04-07] MEDS: Saline FLUSH-CENTRAL 10 ML SYRINGE CENT\\PICC SCH (11:24)
[2021-04-07] MEDS: fentaNYL 100 mcg/2 ml 50 MCG/ML VIAL IV SLOW PU PRN (17:41)
[2021-04-07] MEDS: Midazolam 50 MG VIAL IV DRIP 50 ML IV SCH (19:53)
[2021-04-08] MEDS: Saline FLUSH-CENTRAL 10 ML SYRINGE CENT\\PICC SCH ×3 (00:48→23:38)
[2021-04-08] MEDS: Chlorhexidine MOUTHWASH 0.12% 15 ML UDC TOPICAL SCH ×3 (00:48→11:42)
[2021-04-08] MEDS: Acetaminophen IV 1 GM/100ML 100 ML IV SCH (05:07)
[2021-04-08] MEDS: Artificial Tear OPHTH.OINT 3.5 GM BOTH EYES PRN (07:15)
[2021-04-08] MEDS: fentaNYL 100 mcg/2 ml 50 MCG/ML VIAL IV SLOW PU PRN (16:13)
[2021-04-09] MEDS: Midazolam 50 MG VIAL IV DRIP 50 ML IV SCH (01:50)
[2021-04-09] MEDS: fentaNYL 100 mcg/2 ml 50 MCG/ML VIAL IV SLOW PU PRN (03:01)
[2021-04-09 08:03] VITALS: BP 152/85
[2021-04-09] MEDS ORDERED: Lorazepam PYXIS KEY PRN (09:02)
[2021-04-09] MEDS ORDERED: Morphine 10 MG/ML VIAL (1 ml) ONE ×4 (09:49→10:08)
[2021-04-09] MEDS ORDERED: Morphine 10 MG/ML VIAL (1 ml) IV ONE ×4 (10:00→13:16)
[2021-04-09] MEDS ORDERED: Morphine PCA ADULT 5 MG/ML 30 ML PCA SCH (10:00)
[2021-04-09] MEDS ORDERED: LORazepam 2 mg VIAL 1 ml IV PUSH SCH (10:00)
[2021-04-09] MEDS ORDERED: fentaNYL 100 mcg/2 ml 50 MCG/ML VIAL ONE (10:04)
[2021-04-09] MEDS ORDERED: Propofol 10 MG/ML 20 ML BTL ONE (10:18)
[2021-04-09] MEDS ORDERED: fentaNYL 100 mcg/2 ml 50 MCG/ML VIAL IV SLOW PU ONE (10:20)
[2021-04-09] MEDS ORDERED: Propofol 10 MG/ML 20 ML BTL IV PUSH ONE (10:20)
== END 2021-04-09 10:40 | disposition expired | DRG 296 ==
LOC: ED 09:17 → SUATTDRO 12:14 → ICU 12:14
PROVIDERS: ADMIT Internal Medicine; ATTEND Internal Medicine Critical Care Medicine